=== PATIENT | female | born 1985 | race Two or more races ===

== ENCOUNTER 2023-08-06 19:40 | Emergency (ER) | payer OTHER ==
[~2023-08-06] VITALS: Ht 162.6 cm; Wt 65.8 kg
[2023-08-06 20:37] LABS: HEMATOCRIT 43.9 % (36.0-45.00); HEMOGLOBIN 14.6 g/dL (12.0-15.00); MEAN CELL VOLUME 93.2 fL (80.00-100.00); MEAN CORPUSCULAR HEMOGLOBIN 31.1 pg (27.00-32.0); MEAN CORPUSCULAR HGB CONC 33.4 g/dl (32.0-36.0); PLATELET COUNT 346 K/uL (150-450); RED BLOOD COUNT 4.71 M/uL (4.00-6.00); RED CELL DISTRIBUTION WIDTH 14.8 % (11.5-14.5)
[2023-08-06 21:01] LABS: ALBUMIN 3.2 gm/dL (3.4-5.0); BILIRUBIN TOTAL 0.51 mg/dL (0.3-1.2); CALCIUM 7.9 mg/dL (8.5-10.1); CREATININE SERUM 0.89 mg/dL (0.55-1.02); GFR 70.98; GLOBULINA 4.2 G/DL (2.4-3.5); POTASSIUM 4.33 mEq/L (3.5-5.1); TOTAL PROTEIN 7.4 gm/dL (6.4-8.2)
[2023-08-06] MEDS ORDERED: ZOFRAN8 MG PO (21:50)
[2023-08-06] MEDS ORDERED: PEPCID AC20 MG PO (21:50)
== END 2023-08-06 22:28 | disposition home or self-care (01) ==
LOC: ER 19:40
PROVIDERS: General Practice
DX: K52.9 Noninfective gastroenteritis and colitis, unspecified (principal); R11.2 Nausea with vomiting, unspecified; Z20.822 Contact with and (suspected) exposure to COVID-19